=== PATIENT | female | born 1955 | race Hispanic/Latino ===

== ENCOUNTER 2018-04-19 10:08 | Emergency (ER) | payer SELFPAY ==
[~2018-04-19] VITALS: Ht 154.9 cm; Wt 81.6 kg
[~2018-04-19 10:08] MED LIST: ATORVASTATIN CA10 MG PO; ENALAPRIL-HCTZ1 EACH PO; FLUOXETINE HCL20 MG PO; LEXAPRO10 MG PO; LORAZEPAM0.5 MG PO; METFORMIN HCL500 MG PO; NEXIUM40 MG PO; TYLENOL WITH C1 EACH PO; VESICARE10 MG PO; VITAMIN B-12 PO; VITAMIN E400 UNIT PO
[2018-04-19] MEDS ORDERED: ASPIRIN 81 MG CHEW TAB PO ONE (11:15)
--- NOTE | 2018-04-19 11:59 | Diagnostic Imaging Report ---
PROCEDURE: CHEST SINGLE (PORTABLE) COMPARISON: [facility] [place], , CHEST 2 VIEWS, 07/23/2015, 12:26. INDICATIONS: WHEEZING, FATIGUE FINDINGS: LUNGS: No consolidations or edema. PLEURA: No effusions or pneumothorax. HEART \T\ MEDIASTINUM: The heart is within normal size-limits. BONES \T\ SOFT TISSUES: Mild degenerative spurring of the thoracic spine. CONCLUSION: No acute thoracic abnormality. Thiago Cheema D.O. Dictated by: Thiago Cheema D.O. on 04/19/2018 at 12:03 Electronically approved by: Thiago Cheema D.O. on 04/19/2018 at 12:03
[2018-04-19 12:09] LABS: BILIRUBIN,URINE 2+ (NEGATIVE); CLARITY,URINE SL CLOUDY (CLEAR); COLOR,URINE AMBER (YELLOW); KETONES,URINE NEGATIVE (NEGATIVE); LEUKOCYTE ESTERASE ,URINE TRACE (NEGATIVE); NITRITE,URINE NEGATIVE (NEGATIVE); PROTEIN,URINE DIPSTICK 1+ (NEGATIVE); URINE UROBILINOGEN 4 mg/dL (0.2 - 1)
[2018-04-19 12:19] LABS: BASOPHILS % 0.3 % (0.0-1.0); EOSINOPHILS # (AUTO) 0.1 (0.0-0.4); EOSINOPHILS % 0.5 % (0.0-6.0); HEMATOCRIT 34.9 % (34.2-44.1); LYMPHOCYTES % 10.9 % (18.0-39.1); MEAN CORPUSCULAR HGB CONC 34.4 g/dL (31-35); MEAN CORPUSCULAR VOLUME 87.3 fL (81-99); MONOCYTES # (AUTO) 0.8 (0.2-0.8); MONOCYTES % 8.1 % (4.4-11.3); NEUTROPHILS # (AUTO) 7.5 (2.1-6.9); NEUTROPHILS % 79.7 % (38.7-80.0); PLATELET COUNT 284 x10e3/uL (140-360); RED CELL DISTRIBUTION WIDTH 14.1 % (11.7-14.4)
[2018-04-19 12:28] LABS: BACTERIA,URINE FEW /HPF; EPITHELIAL CELLS,URINE MODERATE /LPF; RBC,URINE 0-5 /HPF (0-5)
[2018-04-19 12:40] LABS: ALBUMIN 3.3 g/dL (3.5-5.0); ALBUMIN/GLOBULIN RATIO 0.8 (0.8-2.0); ANION GAP 15.2 mmol/L (8-16); CALCIUM 9.5 mg/dL (8.4-10.2); CREATININE, SERUM 0.99 mg/dL (0.57-1.11); MAGNESIUM 2.1 MG/DL (1.3-2.1); POTASSIUM 3.2 mmol/L (3.5-5.1)
[2018-04-19] MEDS ORDERED: CEFTRIAXONE SOD 1 GM VIAL IV ONE (12:45)
[2018-04-19 12:49] LABS: CREATINE KINASE MB 2.1 ng/mL (0-5.0)
== END 2018-04-19 13:52 | disposition home or self-care (01) ==
LOC: ER 10:08
DX: D72.829 Elevated white blood cell count, unspecified (principal); R53.1 Weakness; R10.9 Unspecified abdominal pain; N39.0 Urinary tract infection, site not specified
CPT/HCPCS: 36415; 71045; 80053; 81001; 82550; 82553; 83735; 83880; 84484; 85025; 85379; 87040; 87086; 93005; 99284; J0696

== ENCOUNTER 2018-04-26 11:37 | Observation (INO) | payer BC ==
[~2018-04-26] VITALS: Ht 154.9 cm; Wt 91.2 kg
[2018-04-26] MEDS ORDERED: MORPHINE SULFATE 2 MG/ML SYR IV STA (11:52)
[2018-04-26] MEDS ORDERED: SODIUM CHLORIDE 0.9% 500ML 500 ML IV STA (11:52)
[2018-04-26] MEDS ORDERED: ONDANSETRON HCL INJ 2 MG/ML VIAL IV STA (11:52)
[2018-04-26 12:09] LABS: BASOPHILS % 0.3 % (0.0-1.0); EOSINOPHILS # (AUTO) 0.1 (0.0-0.4); EOSINOPHILS % 0.8 % (0.0-6.0); HEMOGLOBIN 11.9 g/dL (12.0-16.0); LYMPHOCYTES # (AUTO) 2.3 (1.0-3.2); LYMPHOCYTES % 20.2 % (18.0-39.1); MEAN CORPUSCULAR VOLUME 88.2 fL (81-99); MONOCYTES # (AUTO) 0.9 (0.2-0.8); MONOCYTES % 8.4 % (4.4-11.3); NEUTROPHILS # (AUTO) 7.8 (2.1-6.9); NEUTROPHILS % 69.8 % (38.7-80.0); PLATELET COUNT 399 x10e3/uL (140-360); RED BLOOD COUNT 3.97 x10e6/uL (3.6-5.1); RED CELL DISTRIBUTION WIDTH 13.9 % (11.7-14.4)
[2018-04-26 12:12] LABS: BILIRUBIN,URINE NEGATIVE (NEGATIVE); CLARITY,URINE CLEAR (CLEAR); COLOR,URINE YELLOW (YELLOW); KETONES,URINE NEGATIVE (NEGATIVE); LEUKOCYTE ESTERASE ,URINE NEGATIVE (NEGATIVE); NITRITE,URINE NEGATIVE (NEGATIVE); PROTEIN,URINE DIPSTICK NEGATIVE (NEGATIVE); URINE UROBILINOGEN 0.2 mg/dL (0.2 - 1)
[2018-04-26 12:21] LABS: EPITHELIAL CELLS,URINE RARE /LPF
[2018-04-26 12:22] LABS: ALANINE AMINOTRANSFERASE 114 IU/L (0-55); ALBUMIN 3.4 g/dL (3.5-5.0); ALBUMIN/GLOBULIN RATIO 0.8 (0.8-2.0); ALKALINE PHOSPHATASE 294 IU/L (40-150); AMYLASE 69 U/L (25-125); ANION GAP 12.5 mmol/L (8-16); BLOOD UREA NITROGEN 18 mg/dL (7-26); BUN/CREATININE RATIO 10 (6-25); CALCIUM 9.6 mg/dL (8.4-10.2); CARBON DIOXIDE 27 mmol/L (22-29); CHLORIDE 97 mmol/L (98-107); CHOL/HDL RATIO 2.3 (3.0-3.6); CHOLESTEROL 105 MD/DL (0-199); CREATINE KINASE 82 IU/L (29-168); CREATININE, SERUM 1.88 mg/dL (0.57-1.11); EST GLOMERULAR FILTRATION RATE 27 ML/MIN (60-); GLUCOSE 164 mg/dL (74-118); HDL CHOLESTEROL 46 MG/DL (40-60); LDL CHOLESTEROL 32 MG/DL (60-130); LIPASE 62 U/L (8-78); POTASSIUM 3.5 mmol/L (3.5-5.1); SODIUM 133 mmol/L (136-145); TRIGLYCERIDES 134 MG/DL (0-149)
[2018-04-26 12:32] LABS: INR 1.07; PARTIAL THROMBOPLASTIN TIME 27.6 seconds (23.8-35.5); PROTHROMBIN TIME 13.1 seconds (11.9-14.5)
--- NOTE | 2018-04-26 13:03 | Diagnostic Imaging Report ---
PROCEDURE: Frontal and lateral views of the chest. COMPARISON: None. INDICATIONS: SHORTNESS OF BREATH, VOMITING FINDINGS: Lines/tubes: None. Lungs: The lungs are well inflated and clear. There is no evidence of pneumonia or pulmonary edema. Pleura: There is no pleural effusion or pneumothorax. Heart and mediastinum: The heart and the mediastinum are normal. Bones: No acute bony abnormality. Degenerative changes of the thoracic spine. IMPRESSION: 1. No acute cardiopulmonary disease. Dictated by: Raymond Franks M.D. on 04/26/2018 at 13:07 Electronically approved by: Raymond Franks M.D. on 04/26/2018 at 13:08
--- NOTE | 2018-04-26 13:40 | Diagnostic Imaging Report ---
PROCEDURE: CT ABDOMEN AND PELVIS WITHOUT CONTRAST TECHNIQUE: The abdomen and pelvis were scanned utilizing a multidetector helical scanner from the diaphragm to the lesser trochanter without intravenous contrast. Coronal and sagittal multiplanar reformations were obtained. COMPARISON: None. INDICATIONS: RUQ PAIN, ABDOMINAL PAIN FINDINGS: ABSENCE OF INTRAVENOUS CONTRAST DECREASES SENSITIVITY FOR DETECTION OF FOCAL LESIONS AND VASCULAR PATHOLOGY. LOWER THORAX: Calcified granuloma in the right lower lobe. HEPATOBILIARY: Diffuse hepatic steatosis. No focal hepatic lesions. Pneumobilia. The gallbladder is absent. The common bile duct is prominent, measuring up to 0.9 cm. SPLEEN: No splenomegaly. PANCREAS: No focal masses or ductal dilatation. ADRENALS: No adrenal nodules. KIDNEYS/URETERS: No hydronephrosis, stones, or solid mass lesions. PELVIC ORGANS/BLADDER: Bladder is unremarkable. The uterus is absent. Calcified linear structures extending from the sacrum to the bladder dome may represent calcified parauterine ligaments. PERITONEUM / RETROPERITONEUM: No free air or fluid. LYMPH NODES: No lymphadenopathy. VESSELS: Mild atherosclerotic calcifications of the aorta and its branches. GI TRACT: No distention or wall thickening. Numerous sigmoid diverticula without evidence of acute inflammation. Small hiatal hernia. 3.0 cm diverticulum arising from the third portion of duodenum. BONES AND SOFT TISSUES: Multilevel spondylosis of the thoracic and lumbar spine, particularly at L5-S1. IMPRESSION: The gallbladder is absent. There is pneumobilia which may be related to prior sphincterotomy or other biliary instrumentation. Correlate with surgical history. Diffuse hepatic steatosis. Dictated by: Raymond Franks M.D. on 04/26/2018 at 13:44 Electronically approved by: Raymond Franks M.D. on 04/26/2018 at 13:44
[2018-04-26] MEDS ORDERED: ONDANSETRON HCL INJ 2 MG/ML VIAL IV PRN (14:00)
[2018-04-26] MEDS ORDERED: MORPHINE SULFATE 2 MG/ML SYR IV PRN (14:00)
[2018-04-26 16:34] VITALS: BP 132/76
[2018-04-26] MEDS: SODIUM CHLORIDE 0.9% 1000ML 1,000 ML IV SCH (16:36)
[2018-04-26 16:51] VITALS: BP 132/76
--- NOTE | 2018-04-26 18:28 | Consultation ---
DATE OF CONSULTATION: April 26, 2018 GASTROENTEROLOGY CONSULTATION HISTORY OF PRESENT ILLNESS: This is a 62-year-old who presented to the hospital because of abdominal pain mainly in the right upper quadrant area along with some nausea and vomiting, but she also has some loose stool. She denies any bleeding along with this problem. Her workup so far revealed that her white count is a little bit high at 11.1 and her liver enzymes are elevated with AST of 101, 140 and an __ALT of 294. She apparently has a history of fatty liver, and she had a CAT scan of the abdomen and pelvis which shows post surgery and pneumobilia which may be related to a sphincterotomy (I am not sure if she ever had a sphincterotomy. The bilateral duct is prominent and about 9 mm.) OTHER MEDICAL PROBLEMS: Significant for hypertension, history of diabetes, history of hyperlipidemia, history of depression, again history of gallstone for which she had supposedly a cholecystectomy. ALLERGIES: NONE. SOCIAL HISTORY: No alcohol use. FAMILY HISTORY: Noncontributory. REVIEW OF SYSTEMS: Denies any chest pain. No shortness of breath. Denies any dysphagia or odynophagia. Denies any dysuria, hematuria, or any kind of syncopal episode. PHYSICAL EXAMINATION GENERAL: The patient is awake, alert, appears to be stable. Not in acute distress at this point. VITAL SIGNS: Afebrile currently. HEAD, EYES, EARS, NOSE AND THROAT: Normocephalic and atraumatic. Sclera is anicteric. NECK: Supple. HEART: Exam is regular. LUNGS: Clear. ABDOMEN: Soft. There is mild tenderness in the right upper quadrant. There is no rebound or mass. EXTREMITIES: No cyanosis, no clubbing. LAB VALUES: Sodium 133, BUN 18, creatinine of 0.98. AST 101, __ALT 114, __alk phos is 294. Albumin 3.4. WBC of 11.1, hemoglobin 11.9. PT and INR are normal. IMPRESSION 1. Abdominal pain mainly in the right upper quadrant area. 2. Abnormal liver function tests. 3. History of diabetes. 4. History of hypertension. RECOMMENDATIONS: Continue current care at this point. We will obtain hepatitis panel as well as autoimmune. Also obtain an MRCP. Follow labs and clinically. Depending on the result, patient may need to have an ERCP. Job#: [id number] EV cc:MD DELPHINE HALL MD
[2018-04-26] MEDS ORDERED: DEXTROSE 50% SYRINGE 50 ML IV PRN (19:00)
[2018-04-26 19:20] VITALS: BP 93/59
[2018-04-26] MEDS: INSULIN REGULAR, HUMAN 100 UNIT/1 ML 3ML VIAL SQ SCH (21:30)
[2018-04-26 23:15] VITALS: BP 93/59
[2018-04-26 23:16] VITALS: BP 93/59
[2018-04-27] VITALS (8 sets, daily range): BP systolic 103–134; BP diastolic 56–73
[2018-04-27 00:41] LABS: CREATINE KINASE 85 IU/L (29-168)
[2018-04-27] MEDS: SODIUM CHLORIDE 0.9% 1000ML 1,000 ML IV SCH ×3 (04:21→21:03)
[2018-04-27 04:40] LABS: BASOPHILS % 0.4 % (0.0-1.0); EOSINOPHILS # (AUTO) 0.3 (0.0-0.4); EOSINOPHILS % 2.3 % (0.0-6.0); HEMOGLOBIN 10.4 g/dL (12.0-16.0); LYMPHOCYTES # (AUTO) 2.8 (1.0-3.2); LYMPHOCYTES % 26.2 % (18.0-39.1); MEAN CORPUSCULAR HEMOGLOBIN 29.6 pg (28-32); MEAN CORPUSCULAR HGB CONC 32.5 g/dL (31-35); MEAN CORPUSCULAR VOLUME 91.2 fL (81-99); MONOCYTES % 9.3 % (4.4-11.3); NEUTROPHILS # (AUTO) 6.6 (2.1-6.9); NEUTROPHILS % 61.3 % (38.7-80.0); PLATELET COUNT 377 x10e3/uL (140-360); RED BLOOD COUNT 3.51 x10e6/uL (3.6-5.1); RED CELL DISTRIBUTION WIDTH 14.1 % (11.7-14.4)
[2018-04-27 04:55] LABS: ANION GAP 12.9 mmol/L (8-16); BLOOD UREA NITROGEN 18 mg/dL (7-26); BUN/CREATININE RATIO 11 (6-25); CALCIUM 9.4 mg/dL (8.4-10.2); CARBON DIOXIDE 25 mmol/L (22-29); CHLORIDE 104 mmol/L (98-107); CREATINE KINASE 86 IU/L (29-168); CREATININE, SERUM 1.71 mg/dL (0.57-1.11); EST GLOMERULAR FILTRATION RATE 30 ML/MIN (60-); GLUCOSE 129 mg/dL (74-118); POTASSIUM 3.9 mmol/L (3.5-5.1); SODIUM 138 mmol/L (136-145)
[2018-04-27 05:00] LABS: ALBUMIN 3.4 g/dL (3.5-5.0); BILIRUBIN,DIRECT 0.5 mg/dL (0.0-0.5)
[2018-04-27] MEDS: INSULIN REGULAR, HUMAN 100 UNIT/1 ML 3ML VIAL SQ SCH ×4 (07:30→20:55)
--- NOTE | 2018-04-27 11:25 | Diagnostic Imaging Report ---
EXAM: Magnetic Resonance Cholangiopancreatography (M.R.C.P.) INDICATION: Abdominal pain COMPARISON: CT prescribed yesterday TECHNIQUE: Multiplanar, multisequence MRCP was performed, with sequences including coronal turbo spin-echo T1-weighted scans, [facility] MRCP scans, coronal spin, [facility]PR 2[facility] MRCP VERA. IV Contrast: None Oral Contrast: None Medications: None COMPLICATIONS: None FINDINGS: Hepatic steatosis. No focal liver lesion visualized. Patient is status post cholecystectomy. Pneumobilia predominantly in the anterior aspect of the liver likely related to prior intervention. Common bile duct dilated measuring 1.7 cm likely secondary to reservoir effect from the cholecystectomy. No obstructing mass or filling defects within the common bile duct. The pancreatic duct is not dilated. The remainder of the organs of the abdomen are otherwise unremarkable. IMPRESSION: 1. Status post cholecystectomy with reservoir effect and pneumobilia of the biliary system. 2. No visualized mass or residual stone in the common bile duct. Signed by: Dr. Chris Dominguez M.D. on 04/27/2018 11:21 AM
[2018-04-27] MEDS: ESCITALOPRAM OXALATE 10 MG TAB PO SCH (22:25)
[2018-04-28 00:05] VITALS: BP 138/73
[2018-04-28 04:30] VITALS: BP 138/65
[2018-04-28 05:55] LABS: BASOPHILS # (AUTO) 0.1 (0.0-0.1); BASOPHILS % 0.5 % (0.0-1.0); EOSINOPHILS # (AUTO) 0.2 (0.0-0.4); EOSINOPHILS % 1.6 % (0.0-6.0); HEMATOCRIT 30.7 % (34.2-44.1); LYMPHOCYTES # (AUTO) 2.6 (1.0-3.2); LYMPHOCYTES % 24.3 % (18.0-39.1); MEAN CORPUSCULAR HEMOGLOBIN 29.9 pg (28-32); MEAN CORPUSCULAR HGB CONC 32.6 g/dL (31-35); MEAN CORPUSCULAR VOLUME 91.9 fL (81-99); MONOCYTES # (AUTO) 0.9 (0.2-0.8); MONOCYTES % 8.9 % (4.4-11.3); NEUTROPHILS # (AUTO) 6.8 (2.1-6.9); NEUTROPHILS % 64.3 % (38.7-80.0); PLATELET COUNT 391 x10e3/uL (140-360); RED BLOOD COUNT 3.34 x10e6/uL (3.6-5.1); RED CELL DISTRIBUTION WIDTH 14.1 % (11.7-14.4)
[2018-04-28 06:28] LABS: ANION GAP 11.6 mmol/L (8-16); CALCIUM 9.1 mg/dL (8.4-10.2); CREATININE, SERUM 1.52 mg/dL (0.57-1.11); POTASSIUM 3.6 mmol/L (3.5-5.1)
[2018-04-28] MEDS ORDERED: LORAZEPAM 0.5 MG TAB PO SCH (06:45)
[2018-04-28 07:11] LABS: ALBUMIN 3.1 g/dL (3.5-5.0); BILIRUBIN,DIRECT 0.4 mg/dL (0.0-0.5)
[2018-04-28 07:46] VITALS: BP 135/70
[2018-04-28 08:05] VITALS: BP 135/70
[2018-04-28] MEDS: ESCITALOPRAM OXALATE 10 MG TAB PO SCH (08:10)
[2018-04-28] MEDS: INSULIN REGULAR, HUMAN 100 UNIT/1 ML 3ML VIAL SQ SCH ×2 (08:11→12:21)
[2018-04-28] MEDS ORDERED: PANTOPRAZOLE SOD 40 MG TABEC PO SCH (09:00)
[2018-04-28] MEDS ORDERED: ESCITALOPRAM OXALATE 10 MG TAB PO SCH (09:00)
[2018-04-28] MEDS ORDERED: VITAMIN E 400 UNIT CAP PO SCH (09:00)
[2018-04-28] MEDS ORDERED: METFORMIN HCL 500 MG TAB PO SCH (09:00)
[2018-04-28] MEDS: SODIUM CHLORIDE 0.9% 1000ML 1,000 ML IV SCH (11:00)
[2018-04-28 12:09] VITALS: BP 138/76
--- NOTE | 2018-04-28 13:25 | Progress Note ---
DATE: April 28, 2018 SUBJECTIVE: Ms. Aldana is doing well. She is asymptomatic with no pain. PHYSICAL EXAMINATION: Unremarkable. LABORATORY DATA: MRCP was negative for choledocholithiasis. ASSESSMENT: Elderly female admitted with acute epigastric pain, felt to have a dilated common bile duct, though no evidence of any obstruction or filling defects. Liver function tests are consistent with a fatty liver. PLAN: Suspect the pain was probably related to muscle spasm. She can probably be discharged. If the pain recurs, then we can consider ERCP. Job#: [id number]
[2018-04-28] MEDS ORDERED: LORAZEPAM 0.5 MG TAB PO PRN (14:00)
[2018-04-28] MEDS ORDERED: ATORVASTATIN 10 MG TAB PO SCH (21:00)
== END 2018-04-28 14:42 | disposition home or self-care (01) ==
LOC: ER 11:37 → ERHOLD 14:16 → IMCU 15:48
PROVIDERS: ADMIT Internal Medicine; ATTEND Internal Medicine
DX: R10.11 Right upper quadrant pain (principal); R10.13 Epigastric pain; K76.0 Fatty (change of) liver, not elsewhere classified; R11.2 Nausea with vomiting, unspecified; I10 Essential (primary) hypertension; E11.9 Type 2 diabetes mellitus without complications; E78.5 Hyperlipidemia, unspecified; Z90.49 Acquired absence of other specified parts of digestive tract; N17.9 Acute kidney failure, unspecified; D64.9 Anemia, unspecified
CPT/HCPCS: 36415 ×3; 71046; 74176; 74181; 80048 ×2; 80053; 80061; 80076 ×2; 81001; 82150; 82550 ×2; 82553 ×2; 82948 ×3; 83690; 84484 ×2; 85025 ×3; 85610; 85730; 86039; 86255 ×2; 93005; 99284; G0378 ×3; J2270; J2405; J7030 ×3; J7040; S0164